=== PATIENT | female | born 1965 | race Asian ===

== ENCOUNTER 2019-10-14 14:21 | Emergency (ER) | payer SELFPAY ==
[~2019-10-14] VITALS: Ht 142.2 cm; Wt 41.0 kg
[2019-10-14 14:28] VITALS: BP 163/95
[2019-10-14] MEDS ORDERED: HYDR-3165 PO (14:57)
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
--- NOTE | 2019-10-14 15:21 | RAD ---
Multiple views of the right ribs as well as AP view of the chest were obtained. History: Reason: upper right chest wall pain / Spl. Instructions: / History: Comparison: none There is no fracture displaced rib fracture or acute bony injury seen. No pneumothorax is seen. Impression: Negative exam of the right ribs and chest. Electronically signed by: Ifeanyi Cisneros MD (10/14/2019 3:18 PM) [id number]
== END 2019-10-14 15:30 | disposition home or self-care (01) ==
LOC: ER 14:21 → EEVIPCON 14:21 → ER 15:30
DX: S20.211A Contusion of right front wall of thorax, initial encounter (principal); I10 Essential (primary) hypertension; F17.210 Nicotine dependence, cigarettes, uncomplicated; Y08.89XA Assault by other specified means, initial encounter; Y93.89 Activity, other specified; Y92.89 Other specified places as the place of occurrence of the external cause; Y99.8 Other external cause status
CPT/HCPCS: 71101; 99283

== ENCOUNTER 2020-01-03 17:05 | Emergency (ER) | payer SELFPAY ==
[~2020-01-03] VITALS: Ht 142.2 cm; Wt 44.7 kg
[2020-01-03 17:05] VITALS: BP 185/111
[~2020-01-03 17:05] MED LIST: HYDR-3165 PO
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
== END 2020-01-03 18:12 | disposition home or self-care (01) ==
LOC: ER 17:05
DX: M54.6 Pain in thoracic spine (principal); M43.9 Deforming dorsopathy, unspecified; I10 Essential (primary) hypertension; F17.210 Nicotine dependence, cigarettes, uncomplicated; Z88.6 Allergy status to analgesic agent
CPT/HCPCS: 99281